=== PATIENT | male | born 1975 | race Hispanic/Latino ===

== ENCOUNTER 2017-12-29 17:35 | Emergency (ER) | payer BC ==
[2017-12-29] MEDS ORDERED: Sodium Chloride 0.9% 1,000 ML IV STA (18:49)
--- NOTE | 2017-12-29 18:55 | ED PDOC ---
HPI: General Adult Time Seen by Provider: 12/29/17 18:38 Chief Complaint (Nursing): Abnormal Skin Integrity Chief Complaint (Provider): rash, malaise History Per: Patient History/Exam Limitations: no limitations Onset/Duration Of Symptoms: Days (5), Gradual Current Symptoms Are (Timing): Better Severity: Moderate Additional Complaint(s): 42yo male c/o fever since wednesday, at that time had malaise, sore throat, body aches, vomiting and nonbloody diarrhea, fever resolved, last several days noticed spotty rash to face and back, no rash to hands/palms/feet/soles. Initially had mild neck pain since resolved. No headache or photophobia, denies abd pain prior or current. No travel. +sick contact states work colleague with foot/mouth disease. Past Medical History Reviewed: Historical Data, Nursing Documentation, Vital Signs Vital Signs: Last Vital Signs Temp 98.3 F 12/29/17 17:41 Pulse 68 12/29/17 17:41 Resp 16 12/29/17 17:41 BP 120/85 12/29/17 17:41 Pulse Ox 96 12/29/17 17:41 - Medical History PMH: Kidney Stones - Surgical History Surgical History: Hernia Repair - Family History Family History: States: Unknown Family Hx - Living Arrangements Living Arrangements: With Family (kids at home w some early viral symptoms) - Social History Current smoker - smoking cessation education provided: No - Home Medications Home Medications: Ambulatory Orders Medication Instructions Recorded Cyclobenzaprine [Flexeril] 5 mg PO BID #10 tab 05/23/15 Oxycodone HCl/Acetaminophen 1 tab PO Q6 PRN #10 tab 05/23/15 [Percocet 325 mg-5 mg] - Allergies Allergies/Adverse Reactions: Allergies Allergy/AdvReac Type Severity Reaction Status Date / Time prochlorperazine Allergy ANAPHYLAXIS Verified 05/22/15 21:39 [From Compazine] prochlorperazine edisylate Allergy ANAPHYLAXIS Verified 05/22/15 21:39 [From Compazine] prochlorperazine maleate Allergy ANAPHYLAXIS Verified 05/22/15 21:39 [From Compazine] Review of Systems Constitutional: Positive for: Fever, Chills, Malaise. Negative for: Weight loss Eyes: Negative for: Vision Change ENT: Positive for: Throat Pain. Negative for: Ear Discharge, Nose Discharge, Throat Swelling Cardiovascular: Negative for: Chest Pain Respiratory: Negative for: Shortness of Breath Gastrointestinal: Negative for: Abdominal Pain Genitourinary Male: Negative for: Dysuria Musculoskeletal: Positive for: Neck Pain, Back Pain, Leg Pain, Other (aches and pains) Skin: Positive for: Rash. Negative for: Lesions, Jaundice Neurological: Negative for: Weakness, Numbness, Confusion, Seizures, Headache, Dizziness Physical Exam - Reviewed Nursing Documentation Reviewed: Yes Vital Signs Reviewed: Yes - Physical Exam Appears: Positive for: Well, Non-toxic, No Acute Distress Head Exam: Positive for: ATRAUMATIC, NORMAL INSPECTION, NORMOCEPHALIC Skin: Positive for: Warm, Rash (maculo-vesicular rash forehead b/l and lower back, neg palms/soles) Eye Exam: Positive for: Normal appearance, EOMI, PERRL, Other (neg photophobia) ENT: Positive for: TM Is/Are (normal), Pharyngeal Erythema (trace) Neck: Positive for: Normal, Painless ROM. Negative for: Decreased ROM, Pain On Movement Of Neck Cardiovascular/Chest: Positive for: Regular Rate, Rhythm Respiratory: Positive for: CNT, Normal Breath Sounds Gastrointestinal/Abdominal: Positive for: Soft. Negative for: Tenderness Back: Positive for: Normal Inspection. Negative for: L CVA Tenderness, R CVA Tenderness Extremity: Positive for: Normal ROM. Negative for: Tenderness, Deformity Neurologic/Psych: Positive for: Alert, Oriented. Negative for: Motor/Sensory Deficits - ECG O2 Sat by Pulse Oximetry: 96 Pulse Ox Interpretation: Normal Medical Decision Making Medical Decision Making: given vomiting/diarrhea, malaise, viral type pattern obtain basic bloodwork and IVF bolus endorse Dr Blake Disposition - Clinical Impression Clinical Impression: Viral syndrome - Patient ED Disposition Is Patient to be Admitted: Transfer of Care - Disposition Disposition: Transfer of Care Disposition Time: 18:58 Patient Signed Over To: Lacho Blake
--- NOTE | 2017-12-29 19:43 | ED PDOC ---
- Laboratory Results Result Diagrams: 12/29/17 20:40 12/29/17 20:40 - ECG O2 Sat by Pulse Oximetry: 96 (RA) Pulse Ox Interpretation: Normal Medical Decision Making Medical Decision Making: Time: 1914 -- Patient endorsed to me by Dr. Dickinson, pending labs and re-evaluation. Time: 2142 -- Labs demonstrate no clinically significant abnormalities. Patient is stable for discharge with a diagnosis of viral illness. ____ Scribe Attestation: Documented by Sophia Quezada acting as a scribe for Lacho Blake MD. Provider Scribe Attestation: All medical record entries made by the Scribe were at my direction and personally dictated by me. I have reviewed the chart and agree that the record accurately reflects my personal performance of the history, physical exam, medical decision making, and the department course for this patient. I have also personally directed, reviewed, and agree with the discharge instructions and disposition. Disposition Counseled Patient/Family Regarding: Studies Performed, Diagnosis, Need For Followup - Clinical Impression Clinical Impression: Viral syndrome - POA Present On Arrival: None - Disposition Referrals: Armin Artis MD, PhD [Primary Care Provider] - Disposition: Routine/Home Disposition Time: 21:43 Condition: STABLE Instructions: Viral Syndrome (DC) Forms: [employer] (Romanian)
[2017-12-29 20:55] LABS: BASO % 0.5 % (0.0-2.0); EOS # 0.1 K/uL (0.0-0.7); EOS % 2.2 % (0.0-4.0); HEMOGLOBIN 13.2 g/dL (12.0-18.0); MEAN CELL VOLUME 84.3 fl (80.0-94.0); MEAN CORPUSCULAR HEMOGLOBIN 29.1 pg (27.0-31.0); MEAN CORPUSCULAR HGB CONC 34.5 g/dL (33.0-37.0); MEAN PLATELET VOLUME 8.9 fl (7.2-11.7); MONO # 0.6 K/uL (0.0-0.8); MONO % 10.1 % (0.0-10.0); NEUT # 3.2 K/uL (1.8-7.0); NEUT % 53.2 % (50.0-75.0); RBC 4.53 Mil/uL (4.40-5.90); RED CELL DISTRIBUTION WIDTH 13.5 % (11.5-14.5); WHITE BLOOD COUNT 5.9 K/uL (4.8-10.8)
[2017-12-29 20:57] LABS: ALB/GLOB RATIO 1.2 (1.0-2.1); ALBUMIN 3.6 g/dL (3.5-5.0); ALT/SGPT 26 U/L (21-72); AST/SGOT 25 U/L (17-59); BLOOD UREA NITROGEN 14 mg/dl (9-20); CALCIUM 9.2 mg/dL (8.4-10.2); GFR NON-AFRICAN AMERICAN > 60; LIPASE 87 U/L (23-300)
[2017-12-29 22:09] VITALS: BP 124/79; PULSE 69; RESP 18; TEMP 98.7
[2017-12-30 03:05] VITALS: O2SAT 96
== END 2017-12-29 22:00 | disposition home or self-care (01) ==
LOC: H.ER 17:35
DX: B34.9 Viral infection, unspecified (principal); Z87.442 Personal history of urinary calculi
CPT/HCPCS: 80053; 83690; 85025; 87070; 87430; 96360; 99283; J1885; J7030